=== PATIENT | female | born 1960 | race Two or more races ===

== ENCOUNTER 2020-12-27 08:53 | Outpatient (CLI) | payer OTHER ==
[~2020-12-27 08:53] MED LIST: CELEBREX100 MG PO; DIABETA1.25 MG PO; DOLOGESIC CAPLE1 TAB PO; ENALAPRIL MALEA10 MG; GLIMEPIRIDE4 MG; JANUVIA100 MG
== END 2020-12-27 09:15 | disposition home or self-care (01) ==
LOC: RAD 08:53
PROVIDERS: ATTEND Internal Medicine Cardiovascular Disease
DX: N63.11 Unspecified lump in the right breast, upper outer quadrant (principal)

== ENCOUNTER 2021-12-20 11:01 | Emergency (ER) | payer OTHER ==
[~2021-12-20] VITALS: Ht 157.5 cm; Wt 70.3 kg
[2021-12-20] MEDS ORDERED: NOVOLIN N100 UNIT/1 IJ (11:24)
[2021-12-20] MEDS ORDERED: COZAAR50 MG PO (11:24)
== END 2021-12-20 15:22 | disposition home or self-care (01) ==
LOC: ER 11:01
DX: R10.13 Epigastric pain (principal); E11.65 Type 2 diabetes mellitus with hyperglycemia; Z79.4 Long term (current) use of insulin; I10 Essential (primary) hypertension; M19.90 Unspecified osteoarthritis, unspecified site; Z20.822 Contact with and (suspected) exposure to COVID-19

== ENCOUNTER 2024-04-24 11:04 | Outpatient (CLI) | payer OTHER ==
[~2024-04-24 11:04] MED LIST changes: +COZAAR50 MG PO; +NOVOLIN N100 UNIT/1 IJ
== END 2024-04-24 11:11 | disposition home or self-care (01) ==
LOC: MAMO-SONO 11:04
PROVIDERS: ATTEND Internal Medicine Cardiovascular Disease
DX: N60.11 Diffuse cystic mastopathy of right breast (principal); N60.12 Diffuse cystic mastopathy of left breast; Z12.31 Encounter for screening mammogram for malignant neoplasm of breast

== ENCOUNTER → 2024-04-24 12:38 | Outpatient (CLI) | payer OTHER | END | disposition home or self-care (01) | LOC: NUCLEAR 12:38 | PROVIDERS: ATTEND Internal Medicine Cardiovascular Disease | DX: M81.0 Age-related osteoporosis without current pathological fracture (principal); E55.9 Vitamin D deficiency, unspecified ==